=== PATIENT | female | born 1965 | race Two or more races ===

== ENCOUNTER 2019-07-07 15:00 | Outpatient (CLI) | payer OTHER | END 2019-07-07 15:01 | disposition critical access hospital (66) | LOC: EMS 15:00 | PROVIDERS: ATTEND Surgery | DX: M54.2 Cervicalgia (principal); M54.9 Dorsalgia, unspecified; V49.40XA Driver injured in collision with unspecified motor vehicles in traffic accident, initial encounter; Y92.413 State road as the place of occurrence of the external cause | CPT/HCPCS: A0425; A0429 ==

== ENCOUNTER 2019-07-07 15:43 | Emergency (ER) | payer OTHER ==
[2019-07-07 15:52] VITALS: BP 137/89
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
[2019-07-07] MEDS ORDERED: ONDANSETRON ODT 4 MG TABLET TL STA (16:35)
== END 2019-07-07 16:47 | disposition home or self-care (01) ==
LOC: ED 15:43 → MERGE 15:43 → ED 16:47
DX: S16.1XXA Strain of muscle, fascia and tendon at neck level, initial encounter (principal); V43.52XA Car driver injured in collision with other type car in traffic accident, initial encounter; Y92.410 Unspecified street and highway as the place of occurrence of the external cause; R11.0 Nausea; I10 Essential (primary) hypertension; Z79.82 Long term (current) use of aspirin
CPT/HCPCS: 72125; 99283; 99284; Q0162

== ENCOUNTER 2020-12-19 11:22 | Outpatient (CLI) | payer OTHER ==
--- NOTE | 2020-12-20 12:49 | Mammography Report ---
BILATERAL DIGITAL SCREENING MAMMOGRAM 3D/2D: 12/19/2020 CLINICAL: Routine screening. Comparison is made to exams dated: 05/04/2019 mammogram, 02/24/2018 mammogram, and 01/09/2017 mammogram - [facility]. The tissue of both breasts is extremely dense, which lowers the sensiti vity of mammography. No significant masses, calcifications, or other findings are seen in either breast. There has been no significant interval change. IMPRESSION: NEGATIVE There is no mammographic evidence of malignancy. A 1 year screening mammogram is recommended. This exam was interpreted at Station ID: [id number]. NOTE: For mammograms, a report in lay terms will be sent to the patient. Approximately 15% of breast malignancies will not be visualized mammographically. In the management of a palpable breast mass, a negative mammogram must not discourage biopsy of a clinically suspicious lesion. Electronically Signed By: Chasidy wu/penrad:12/19/2020 12:33:40 ACR BI-RADS Category 1: Negative 3341F PARENCHYMAL PATTERN: (VD) - The breast(s) demonstrate(s) extremely dense parenchyma, limiting the sen sitivity of mammography. BI-RADS CATEGORY: (1) - 1 RECOMMENDATION: (ANNUAL) - Recommend routine annual screening mammography. [id number] 1 year screening LATERALITY: (B)
== END 2020-12-19 11:23 | disposition home or self-care (01) ==
LOC: DI.N 11:22
DX: Z12.31 Encounter for screening mammogram for malignant neoplasm of breast (principal)

== ENCOUNTER 2022-07-28 09:37 | Emergency (ER) | payer OTHER ==
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
[2022-07-28 12:36] VITALS: BP 135/88
== END 2022-07-28 11:25 | disposition home or self-care (01) ==
LOC: ED 09:37
DX: F43.9 Reaction to severe stress, unspecified (principal); I10 Essential (primary) hypertension
CPT/HCPCS: 93005; 99282; 99283